=== PATIENT | female | born 1985 | race Caucasian/White ===

== ENCOUNTER 2017-02-10 05:45 | Emergency (ER) | payer BC, OTHER ==
--- NOTE | 2017-02-10 08:47 | DIAGNOSTIC IMAGING REPORT ---
PROCEDURE: CT ABD/PELVIS WITH CONTRAST INDICATION: Generalized abdominal pain. Prior hysterectomy. TECHNIQUE: 125 ml of Isovue 300 were injected intravenously and axial images were obtained of the entire abdomen and pelvis with sagittal and coronal reformations. COMPARISON: None. FINDINGS: ABDOMEN: Mild increased fluid in the mid and distal small bowel. Bowel pattern is otherwise normal, including appendix. Gallbladder, liver, spleen, pancreas, kidneys, and aorta are normal. PELVIS: Status post hysterectomy. There is mild to moderate enlargement right adnexal region (5.6 cm) with 2-3 cysts ( largest 18 mm). Small amount of free fluid in the pelvis. Left ovary is normal (2.2 cm). IMPRESSION: 1. Mild increased fluid in the mid and distal small bowel. While this may be normal, consider ileus. 2. Normal appendix. 3. Status post hysterectomy. 4. Moderate enlargement right adnexal region and right ovary (5.6 cm) with multiple cysts. In addition, there is a small amount of free fluid the pelvis. Overall appearance suggests an occult ruptured ovarian cyst, although endometriosis might also be considered. Underlying ovarian mass is less likely, although still a consideration. Follow-up pelvic ultrasound (3-4 weeks) is recommended to confirm resolution. 5. Findings discussed with Dr. Luis A Anthony. All CT scans at this facility use dose modulation, iterative reconstruction, and/or weight-based dosing when appropriate to reduce radiation dose to as low as reasonably achievable.
--- NOTE | 2017-02-10 09:19 | ED ORDER SUMMARY ---
..... Patient: IMANI JACKSON OrderSheet [facility] VisitID: [id number] [place] [address] 31y, F Registration Date/Time: 02/10/2017 ORDER SHEET Weight: 84.8 kg (stated) Allergies: NIFEdipine GENERAL ORDERS: CBC w Diff Urgent (06:11 02/10/2017 Alan Davies) (Ack 6:28 Bryan) (6:48 Juliet R.N.) CMP Urgent (06:11 02/10/2017 Alan Davies) (Ack 6:28 Bryan) (6:48 Juliet R.N.) UA-Culture if indicated Urgent (06:11 02/10/2017 Alan Davies) (6:13 Jackson R.Tono.) Amylase Urgent (07:12 02/10/2017 Alan Davies) (Ack 7:14 Javier) (7:22 ALawrence ER Tech1) Lipase Urgent (07:12 02/10/2017 Alan Davies) (Ack 7:14 Javier) (7:22 ALawrence ER Tech1) CT Abd/Pel w Cont (No) (8/0.7) Urgent (07:52 02/10/2017 Alan Davies) (Ack 8:08 ALawrence ER Tech1) (8:26 ALawrence ER Tech1) MEDICATION ORDERS: IV FLUIDS: IV NS : initial bolus none -, then 1000 mL/hr for X1 (NOW) (06:10 02/10/2017 Alan Davies) (Ack 6:14 Jackson R.NEulalia) (6:48 Juliet R.N.) Zofran IV 4 mg (NOW) (06:11 02/10/2017 Alan Davies) (Ack 6:14 Jackson R.NEulalia) (6:46 Juliet R.N.) Toradol IV 30 mg (NOW) (07:44 02/10/2017 Alan Davies) (Ack 7:44 Daniel R.N.) (7:48 JBoardley R.N.) ORDER SHEET NOTES: [Electronically signed by Luis A Anthony Dr. (09:41 02/10/2017)] [Electronically signed by Ángel Davis R.N. (:50 02/10/2017)] [Electronically locked/signed by Ángel Davis R.N. (:50 02/10/2017)]
--- NOTE | 2017-02-10 09:19 | ED NURSING NOTES ---
Clinical Report - Nurses [facility] [address] [place] [address] 02/10/2017 5:48 [id number] Triage time 05:52. Acuity: LEVEL 3. Chief Complaint: ABDOMINAL PAIN and NAUSEA and FEVER, CHILLS, ACHES and PAINFUL URINATION. --06:01 Celeste Perdo R.N. 05:52 02/10/17. BP: 133/88 taken on the left arm, while lying. HR: 93 (regular and normal rate). RR: 16 (regular and unlabored). O2 saturation: 99% on room air. Temp: 97.9 F. Pain level now: 03/29. --06:01 Celeste Pedro R.N. Weight: 84.8 kg stated. Height/Length: 65 inches Per Patient. BMI: 31.1. --05:55 Celeste Pedro R.N. Medications Venlafaxine HCl ER Oral 2 tablets, daily. --05:58 Celeste Pedro R.N. Adderall Oral (Tablet 20 mg) 1 tablet, daily. --05:58 Celeste Pedro R.N. Allergies NIFEdipine. Definite Severe (hypotension) --05:59 Celeste Pedro R.N. History Historian: patient. This started yesterday. ( pt c/o lower abd pain states "feels like there is a blockage" last BM was yesterday.). PAST MEDICAL HX: Immunizations: up-to-date. SOCIAL HX: Never smoker. Occasional alcohol use. No drug use. No infectious disease exposure. No known contact with a sick individual. ABUSE ASSESSMENT: Abuse assessment: The patient was asked "Do you feel safe in your home?" Abuse denied by patient. No report of abuse. SELF HARM ASSESSMENT: A self harm assessment was performed. The patient answered "no" to the question "Have you recently felt down, depressed, or hopeless?", "Have you noticed less interest or pleasure in doing things?", "Do you have thoughts of harming or killing yourself?", "Are you here because you tried to hurt yourself?", "Have you ever tried to hurt yourself before today?", "Have you recently had thoughts about harming or killing others?" and "Do you have any dangerous items in your possession?". FALL RISK ASSESSMENT: Fall risk assessment completed. No fall risk identified. NUTRITIONAL RISK ASSESSMENT: The nutritional risk assessment revealed no deficiencies. FUNCTIONAL ASSESSMENT: Functional assessment: no impairments noted. LEARNING NEEDS ASSESSMENT: The learning needs assessment revealed no barriers. SKIN INTEGRITY ASSESSMENT: Skin integrity risk assessment completed. No skin integrity risk identified. --06:01 Celeste Pedro R.N. Arrived by private vehicle. Historian: patient. Unaccompanied. Primary physician (vickey). --06:01 Celeste Pedro R.N. PROBLEMS: PTSD. ADHD - Attention Deficit Hyperactivity Disorder. --06:00 Celeste Pedro R.N. ADDITIONAL SURGERIES: . Elbow repair. Hysterectomy. --06:00 Celeste Pedro R.N. Interventions ID band on patient. --06:01 Celeste Pedro R.N. PHYSICAL ASSESSMENT Ambulatory to room. GENERAL / NEURO / PSYCH: Alert. Oriented X 4. Appears in pain. HEENT: Mucous membranes are pink. RESPIRATORY: Respirations not labored. Breath sounds within normal limits. CVS: Normal sinus rhythm noted. Capillary refill less than 2 seconds. GI / : The patient has had constant nausea. Abdomen soft. Abdominal tenderness in the right lower quadrant and lower abdomen. Bowel sounds within normal limits. SKIN: Skin is warm and dry. --06:02 Celeste Pedro R.N. NURSING PROGRESS NOTES Pulse oximeter and NIBP monitor placed on patient; gambling monitor- Lead II. Patient gowned. Two patient identifiers checked. Call light placed in reach. Side rails up x 1. Bed placed in lowest position. Brakes of bed on. --06:02 Celeste Pedro R.N. Patient ready for evaluation- chart flagged. --06:02 Celeste Pedro R.N. 06:35 02/10/2017 Two (2) unsuccessful IV access attempts including the right antecubital space and left upper arm. Applied bandage and manual pressure. --06:50 Celeste Pedro R.N. 06:43 02/10/2017 Zofran (Ondansetron HCl) IVP 4 mg given over 30 second(s) via site #1. Allergies verified and confirmed 5 rights. IV patency established. IV site checked: no pain, redness, or swelling. IV flushed thoroughly pre- and post-medication administration. IVP given by RN. --06:46 Kathy Patrick R.N. 06:45 02/10/2017 Site #1 started via IV in the left hand with an 20g angiocath, with aseptic technique and good blood return; one attempt. Blood drawn. Labeled in the presence of the patient and sent to the lab. Saline lock flushed with 10 mL saline (red and green topped tubes drawn at time of IV start.). --06:46 Kathy Patrick R.N. 06:45 02/10/2017 Started bag #1 1000 mL IV Fluids IV NS (Saline); at 1000 mL/hr via site #1 via IV pump. Allergies verified and confirmed 5 rights. IV patency established. IV site checked: no pain, redness, or swelling. IV flushed thoroughly pre- and post-medication administration. --06:48 Kathy Patrick R.N. 06:45 02/10/17. BP: 125/81 taken on the left arm, while lying. HR: 75 (regular and normal rate). RR: 18 (regular and unlabored). O2 saturation: 100% on room air. Temp: deferred. Pain level now: 12/28. --07:00 Celeste Pedro R.N. Overall patient status is the same- she states feels the same. GI / : Bowel sounds within normal limits. --07:00 Celeste Pedro R.N. Care transferred and report given (Sondra CARTER). --07:06 Celeste Pedro R.N. 07:48 02/10/17. BP: 125/67. HR: 77. RR: 18. O2 saturation: 100% on room air. Pain level now: 03/29. --07:48 Ángel Davis R.N. 07:35 02/10/2017 IV Fluids IV NS Discontinued: bag #1 infused. Total amount infused: 1000 mL. IV patency established. IV site checked: no pain, redness, or swelling. IV flushed thoroughly. --07:50 Ángel Davis R.N. 07:48 02/10/2017 Toradol IVP 30 mg given over 2 minute(s) via site #1. Allergies verified and confirmed 5 rights. IV patency established. IV site checked: no pain, redness, or swelling. IV flushed thoroughly pre- and post-medication administration. IVP given by RN. --07:48 Ángel Davis R.N. 07:48 02/10/17. --07:48 Ángel Davis R.N. 07:49 02/10/17. Patient informed about reason for wait and about plan of care. --07:49 Ángel Davis R.N. 08:03 02/10/17. Patient informed about reason for wait and about plan of care. --08:04 Ángel Davsi R.N. 08:04 02/10/17. Patient waiting for CT to be done. --08:04 Ángel Davis R.N. 08:28 02/10/17. Reassessment after medication administered. She has had no adverse reaction. Overall patient status is improved- she states feels better. --08:28 Ángel Davis R.N. 08:28 02/10/17. Pain level now: 10. --08:28 Ángel Davis R.N. 08:02/10/17. Patient waiting for CT results. --08:28 Ángel Davis R.N. DISPOSITION / DISCHARGE 09:02/10/2017 Site #1 removed upon discharge. Catheter intact. --09:25 Ángel Davis R.N. 09:26 02/10/17. Condition at departure: improved. The goals identified in the patient's plan of care were met. No learning barriers present. Discharge instructions provided and reviewed with the patient. Reviewed warnings. Reviewed medication(s). Treatments reviewed. Patient verbalized understanding. Written instructions provided in Uzbek. The patient was discharged by the physician. She was discharged home and accompanied by family. She left the Emergency Department ambulatory and via private vehicle. Family member driving. FALL RISK ASSESSMENT: Fall risk assessment completed. No fall risk identified. --09:26 Ángel Davis R.N. 09:25 02/10/17. BP: 124/66. HR: 81. RR: 15. O2 saturation: 99% on room air. Temp: 97.9 F (oral). Pain level now: 10/30. --09:26 Ángel Davis R.N. 09:26 02/10/17. Departure time: 09:Feb 10 2017. --09:26 Ángel Davis R.N. Locked/Released at 02/10/2017 9:50 by Ángel Davis R.N.
--- NOTE | 2017-02-10 09:19 | ED CLINICAL REPORT ---
Clinical Report - Physicians/Mid Levels [facility] [address] [place] [address] 02/10/2017 5:48 Patient: IMANI JACKSON Time Seen: 05:53; initial patient contact. Arrived- By private vehicle. Historian- patient. HISTORY OF PRESENT ILLNESS Chief Complaint: ABDOMINAL PAIN. This started yesterday and is still present. It was gradual in onset and has been constant. At its maximum, severity described as moderate. When seen in the E.D., severity described as moderate. Modifying factors. Not worsened by anything. Not relieved by anything. No radiation. It is described as located in the lower abdomen. The patient has had nausea, loss of appetite and vomiting. No diarrhea. No recent travel. Similar symptoms previously: None. Recent medical care: Not recently seen/assessed. REVIEW OF SYSTEMS No constipation, difficulty with urination, pain with urination, urinary frequency or fever. No chills. Last bowel movement: yesterday. All systems otherwise negative, except as recorded above. PAST HISTORY PTSD. ADHD - Attention Deficit Hyperactivity Disorder. SURGERIES: . Elbow repair. Hysterectomy. SOCIAL HISTORY Never smoker. Occasional alcohol use. No drug use. ADDITIONAL NOTES The nursing notes have been reviewed. PHYSICAL EXAM Vital Signs: 02/10/2017 05:52 BP: 133/88. HR: 93. RR: 16. O2 saturation: 99%. Temp: 97.9 F. Pain level now: 7/10. Have been reviewed as normal. Appearance: Alert. Oriented X3. No acute distress. Eyes: Eyes normal inspection. ENT: Pharynx normal. CVS: Normal heart rate and rhythm. Heart sounds normal. Respiratory: No respiratory distress. Breath sounds normal. Abdomen: Soft. Moderate tenderness in the right lower quadrant and lower abdomen with guarding present. Positive psoas sign. No rebound tenderness or obturator sign present. Bowel sounds normal. No organomegaly. No mass. Back: Normal inspection. No CVA tenderness. Skin: Skin warm and dry. Normal skin color. No rash. Neuro: Oriented X 3. LABS, X-RAYS, AND EKG Abdominal CT: 1. Mild increased fluid in the mid and distal small bowel. While this may be normal, consider ileus. 2. Normal appendix. 3. Status post hysterectomy. 4. Moderate enlargement right adnexal region and right ovary (5.6 cm) with multiple cysts. In addition, there is a small amount of free fluid the pelvis. Overall appearance suggests an occult ruptured ovarian cyst, although endometriosis might also be considered. Underlying ovarian mass is less likely, although still a consideration. Follow-up pelvic ultrasound (3-4 weeks) is recommended to confirm resolution. Study type: abdomen and pelvis. Abdominal CT performed with IV contrast. The study was independently viewed by me, interpreted by the radiologist and discussed with the radiologist. Prior studies were not available for comparison. Interpretation time: 08:51. Laboratory Tests: UA-Culture if indicated: (MARKEL: 02/10/2017 05:57) ( MsgRcvd 02/10/2017 06:42) Final results Test Result Flag Units (Reference) URINE COLOR MINH URINE APPEARANCE CLEAR URINE GLUCOSE NEGATIVE (NEGATIVE) URINE BILIRUBIN ICTOTEST NEGATIVE (NEGATIVE) URINE KETONE TRACE (NEGATIVE) URINE SPECIFIC GRAVITY 1.025 (1.010-1.030) URINE PH 6.0 (5.0-8.0) URINE PROTEIN NEGATIVE (NEGATIVE) URINE UROBILINOGEN 4.0 EU/dL (0.2-1.0) The urobilinogen reagent area may react with interferingsubstances known to react with Sharon's reagent such asp-aminosalicylic acid and sulfonamides. Atypical colorreactions may be obtained in the presence of highconcentrations of p-aminobenzoic acid. The absence ofurobilinogen cannot be determined with this test. URINE NITRITE NEGATIVE (NEGATIVE) URINE BLOOD 2+ (NEGATIVE) URINE LEUK ESTERASE NEGATIVE (NEGATIVE) URINE RBC 5-10 rbc/hpf (0-1) URINE WBC 0-1 wbc/hpf (0-1) URINE EPITHELIAL CELLS 3-5 EPI/hpf (0-5) URINE BACTERIA MODERATE (2+ TO 3+) (NONE SEEN) URINE COMMENT CULTURE INDICATED RARE HYALINE CAST.URINE CULTURES ARE SET-UP BASED ON THE FOLLOWING CRITERIA:POSITIVE NITRITEPOSITIVE LEUKOCYTE ESTERASEGREATER THAN 10 WHITE BLOOD CELLSMODERATE (2+) OR GREATER BACTERIA CBC w Diff: (MARKEL: 02/10/2017 06:43) ( [facility] 02/10/2017 06:51) Final results Test Result Flag Units (Reference) WHITE BLOOD COUNT 13.4 H K/uL (4.5-11.5) RED BLOOD COUNT 4.14 M/uL (4.00-5.20) HEMOGLOBIN 14.3 gm/dL (12.0-16.0) HEMATOCRIT 41.1 % (36.0-46.0) MEAN CELL VOLUME 99 fL (80-100) MEAN CORPUSCULAR HGB 35 H pg (26-34) MEAN CORPUSCULAR HGB CONC 35 g/dL (31-37) RED CELL DISTRIBUTION WIDTH 12.9 % (11.6-14.8) PLATELET COUNT 259 K/uL (150-400) NEUTROPHIL % 82.1 H % (50-75) LYMPH % 9.8 L % (25-40) MONO % 5.9 % (3-14) EOSINOPHIL % 2.0 % (0-4) BASOPHIL % 0.2 % (0-2) Lipase: (MARKEL: 02/10/2017 06:43) ( [facility] 02/10/2017 07:44) Final results Test Result Flag Units (Reference) LIPASE 128 U/L (73-393) AMYLASE 42 U/L (25-115) CMP: (MARKEL: 02/10/2017 06:43) ( [facility] 02/10/2017 07:01) Final results Test Result Flag Units (Reference) GLUCOSE 105 mg/dL (70-110) BUN 8 mg/dL (7-18) CREATININE 0.7 mg/dL (0.6-1.3) Estimated GFR >60 mL/min Estimated GFR- >60 mL/min Note: Persistent reduction over 3 months in eGFR<60 mL/min/1.73 m2 defines CKD. Patients with eGFR values>=60 mL/min/1.73 m2 may also have CKD if evidence ofpersistent proteinuria. Additional information may be foundat www.kidney.org. SODIUM 139 mmol/L (136-145) POTASSIUM 3.9 mmol/L (3.5-5.1) CHLORIDE 104 mmol/L (98-107) CARBON DIOXIDE 27 mmol/L (21-32) CALCIUM 8.3 L mg/dL (8.5-10.1) TOTAL PROTEIN 7.0 g/dL (6.4-8.2) ALBUMIN 3.3 g/dL (3.3-5.0) BILIRUBIN, TOTAL 1.4 H mg/dL (0.0-1.0) ALKALINE PHOSPHATASE 147 H U/L (46-116) AST (SGOT) 38 H U/L (15-37) ALT (SGPT) 49 U/L (12-78) . PROGRESS AND PROCEDURES Disposition: Discharged home in good and improved condition. Condition: good. CLINICAL IMPRESSION Acute urinary tract infection with cystitis. Single simple right ovarian cyst. INSTRUCTIONS Your Current Medications: CONTINUE TAKING THE FOLLOWING MEDICATIONS: Adderall Oral : Tablet 20 mg, 1 tablet daily. Venlafaxine HCl ER Oral : 2 tablets daily. Prescription Medications: Zofran (orally disintegrating tablets) 4 mg: take 1 orally every 6 hours as needed for nausea and vomiting. Dispense ten (10). No refill. Substitution is permissible. Cipro 500 mg: take 1 tab orally every 12 hours for 3 days. No refills. Substitution is permissible. Follow-up: Follow up with your doctor in about two days. Call for an appointment. Screening today revealed the patient's blood pressure to be in the pre-hypertensive range. The patient should follow up with a primary care provider for blood pressure management. (Electronically signed by Luis A Anthony Dr. 02/10/2017 9:41)
--- NOTE | 2017-02-10 09:19 | ED ORDER SUMMARY ---
..... Patient: IMANI JACKSON OrderSheet [facility] VisitID: [id number] [place] [address] 31y, F Registration Date/Time: 02/10/2017 ORDER SHEET Weight: 84.8 kg (stated) Allergies: NIFEdipine GENERAL ORDERS: CBC w Diff Urgent (06:11 02/10/2017 Alan Davies) (Ack 6:28 Bryan) (6:48 Juliet R.N.) CMP Urgent (06:11 02/10/2017 Alan Davies) (Ack 6:28 Bryan) (6:48 Juliet R.N.) UA-Culture if indicated Urgent (06:11 02/10/2017 Alan Davies) (6:13 Jackson R.Tono.) Amylase Urgent (07:12 02/10/2017 Alan Davies) (Ack 7:14 Javier) (7:22 ALawrence ER Tech1) Lipase Urgent (07:12 02/10/2017 Alan Davies) (Ack 7:14 Javier) (7:22 ALawrence ER Tech1) CT Abd/Pel w Cont (No) (8/0.7) Urgent (07:52 02/10/2017 Alan Davies) (Ack 8:08 ALawrence ER Tech1) (8:26 ALawrence ER Tech1) MEDICATION ORDERS: IV FLUIDS: IV NS : initial bolus none -, then 1000 mL/hr for X1 (NOW) (06:10 02/10/2017 Alan Davies) (Ack 6:14 Jackson R.NEulalia) (6:48 Juliet R.N.) Zofran IV 4 mg (NOW) (06:11 02/10/2017 Alan Davies) (Ack 6:14 Jackson R.NEulalia) (6:46 Juliet R.N.) Toradol IV 30 mg (NOW) (07:44 02/10/2017 Alan Davies) (Ack 7:44 Daniel R.N.) (7:48 JBoardley R.N.) ORDER SHEET NOTES: [Electronically signed by Luis A Anthony Dr. (09:41 02/10/2017)] [Electronically signed by Ángel Davis R.N. (:50 02/10/2017)] [Electronically locked/signed by Ángel Davis R.N. (:50 02/10/2017)]
--- NOTE | 2017-02-10 09:51 | ED MED RECONCILIATION SUMMARY ---
Patient: IMANI JACKSON Medication Reconciliation Report [facility] VisitID: [id number] [address] [place] [address] 31y, F Registration Date/Time: 02/10/2017 Weight: 84.8 kg Height/Length: 65 in. BMI: 31.1 ALLERGIES: NIFEdipine The patient's Home Medications are listed below: CONTINUE TAKING THE FOLLOWING MEDICATIONS: Adderall Oral (20 mg) 1 tablet, daily Venlafaxine HCl ER Oral 2 tablets, daily The source(s) of the original Home Medication information: Not obtained. The following Medications were given to the patient in the Emergency Department: Zofran [IVP] IVP 4 mg, administered: 02/10/2017 6:43:00 AM IV NS IV Fluids bolus 0, then 1000 mL/hr, administered: 02/10/2017 6:45:00 AM Toradol [IVP] IVP 30 mg, administered: 02/10/2017 7:48:00 AM The following Medications were prescribed to the patient: Zofran (orally disintegrating tablets) 4 mg: take 1 orally every 6 hours as needed for nausea and vomiting. Dispense ten (10). No refill. Substitution is permissible. -- Luis A Anthony Dr. Cipro 500 mg: take 1 tab orally every 12 hours for 3 days. No refills. Substitution is permissible. -- Luis A Anthony Dr.
--- NOTE | 2017-02-10 09:51 | ED MAR SUMMARY ---
..... Medication Administration Record [facility] [address] [place] [address] Patient: IMANI JACKSON Visit ID: [id number] 31y, F Weight: 84.8 kg Height/Length: 65 in BMI: 31.1 ALLERGIES: NIFEdipine Given 06:43 02/10/2017 Kathy Patrick R.N. Medication Administered: ZOFRAN [IVP] (ONDANSETRON HCL), Dose: 4 mg IVP over 30 second(s), Site: #1. Medication Ordered: Zofran IV 4 mg (NOW). Start 06:45 02/10/2017 Kathy Patrick R.N., Stop 07:35 02/10/2017 Ángel Davis R.N. Medication Administered: IV NS (SALINE), Dose: IV Fluids, Rate: 1000 mL/hr, Dispensed: 1000 mL bag, Site: #1 left hand. Medication Ordered: IV NS : initial bolus none -, then 1000 mL/hr for X1 (NOW). Given 07:48 02/10/2017 Ángel Davis R.N. Medication Administered: TORADOL [IVP], Dose: 30 mg IVP over 2 minute(s), Site: #1 left hand. Medication Ordered: Toradol IV 30 mg (NOW).
--- NOTE | 2017-02-10 09:51 | ED MAR SUMMARY ---
..... Medication Administration Record [facility] [address] [place] [address] Patient: IMANI JACKSON Visit ID: [id number] 31y, F Weight: 84.8 kg Height/Length: 65 in BMI: 31.1 ALLERGIES: NIFEdipine Given 06:43 02/10/2017 Kathy Patrick R.N. Medication Administered: ZOFRAN [IVP] (ONDANSETRON HCL), Dose: 4 mg IVP over 30 second(s), Site: #1. Medication Ordered: Zofran IV 4 mg (NOW). Start 06:45 02/10/2017 Kathy Patrick R.N., Stop 07:35 02/10/2017 Ángel Davis R.N. Medication Administered: IV NS (SALINE), Dose: IV Fluids, Rate: 1000 mL/hr, Dispensed: 1000 mL bag, Site: #1 left hand. Medication Ordered: IV NS : initial bolus none -, then 1000 mL/hr for X1 (NOW). Given 07:48 02/10/2017 Ángel Davis R.N. Medication Administered: TORADOL [IVP], Dose: 30 mg IVP over 2 minute(s), Site: #1 left hand. Medication Ordered: Toradol IV 30 mg (NOW).
--- NOTE | 2017-02-10 09:51 | ED MED RECONCILIATION SUMMARY ---
Patient: IMANI JACKSON Medication Reconciliation Report [facility] VisitID: [id number] [address] [place] [address] 31y, F Registration Date/Time: 02/10/2017 Weight: 84.8 kg Height/Length: 65 in. BMI: 31.1 ALLERGIES: NIFEdipine The patient's Home Medications are listed below: CONTINUE TAKING THE FOLLOWING MEDICATIONS: Adderall Oral (20 mg) 1 tablet, daily Venlafaxine HCl ER Oral 2 tablets, daily The source(s) of the original Home Medication information: Not obtained. The following Medications were given to the patient in the Emergency Department: Zofran [IVP] IVP 4 mg, administered: 02/10/2017 6:43:00 AM IV NS IV Fluids bolus 0, then 1000 mL/hr, administered: 02/10/2017 6:45:00 AM Toradol [IVP] IVP 30 mg, administered: 02/10/2017 7:48:00 AM The following Medications were prescribed to the patient: Zofran (orally disintegrating tablets) 4 mg: take 1 orally every 6 hours as needed for nausea and vomiting. Dispense ten (10). No refill. Substitution is permissible. -- Luis A Anthony Dr. Cipro 500 mg: take 1 tab orally every 12 hours for 3 days. No refills. Substitution is permissible. -- Luis A Anthony Dr.
--- NOTE | 2017-02-10 09:51 | ED DISCHARGE INSTRUCTIONS ---
Patient: IMANI JACKSON General Instructions Formerly [facility] VisitID: [id number] [place] [address] 31y, F Registration Date/Time: 02/10/2017 Acute urinary tract infection with cystitis. Single simple right ovarian cyst. INSTRUCTIONS Your Current Medications: CONTINUE TAKING THE FOLLOWING MEDICATIONS: Adderall Oral : Tablet 20 mg, 1 tablet daily. Venlafaxine HCl ER Oral : 2 tablets daily. Prescription Medications: Zofran (orally disintegrating tablets) 4 mg: take 1 orally every 6 hours as needed for nausea and vomiting. Dispense ten (10). No refill. Substitution is permissible. Cipro 500 mg: take 1 tab orally every 12 hours for 3 days. No refills. Substitution is permissible. Follow-up: Follow up with your doctor in about two days. Call for an appointment. Screening today revealed the patient's blood pressure to be in the pre-hypertensive range. The patient should follow up with a primary care provider for blood pressure management. ADDITIONAL INFORMATION Bladder Infection,Female (Adult) A bladder infection ("cystitis" or "UTI") usually causes a constant urge to urinate and a burning when passing urine. Urine may be cloudy, smelly or dark. There may be pain in the lower abdomen. A bladder infection occurs when bacteria from the vaginal area enter the bladder opening (urethra). This can occur from sexual intercourse, wearing tight clothing, dehydration and other factors. Home Care: Drink lots of fluids (at least 6-8 glasses a day, unless you must restrict fluids for other medical reasons). This will force the medicine into your urinary system and flush the bacteria out of your body. Avoid sexual intercourse until your symptoms are gone. Avoid caffeine, alcohol and spicy foods. These can irritate the bladder. A bladder infection is treated with antibiotics. You may also be given Pyridium (generic = phenazopyridine) to reduce the burning sensation. This medicine will cause your urine to become a bright orange color. The orange urine may stain clothing. You may wear a pad or panty-liner to protect clothing. Preventing Future Infections: Always wipe from front to back after a bowel movement. Keep the genital area clean and dry. Drink plenty of fluids each day to avoid dehydration. Both sexual partners should wash before intercourse. Urinate right after intercourse to flush out the bladder. Wear cotton underwear and cotton-lined panty hose; avoid tight-fitting pants. If you are on control pills and are having frequent bladder infections, discuss with your doctor. Follow Up: Return to this facility or see your doctor if ALL symptoms are not gone after three days of treatment. Get Prompt Medical Attention if any of the following occur: Fever of 100.4F (38C) or higher, or as directed by your healthcare provider No improvement by the third day of treatment Increasing back or abdominal pain Repeated vomiting; unable to keep medicine down Weakness, dizziness or fainting Vaginal discharge Pain, redness or swelling in the labia (outer vaginal area) Ovarian Cyst The ovary is a small organ located on each side of the uterus. During each menstrual cycle a tiny egg sac forms in the ovary. If the egg is released but does not occur, this sac usually dissolves. Sometimes, the sac may fill with fluid. It then enlarges into a painful cyst. Usually the cyst will rupture or shrink on its own. In either case, the pain gradually goes away over the next 1-3 days. If the cyst does not shrink or rupture, it may cause continued pain. Home Care: Rest in bed and avoid heavy exertion until you are feeling better. Heat to the lower abdomen usually helps (heating pad or hot packs -- a small towel soaked in hot water). You may use acetaminophen (Tylenol) or ibuprofen (Motrin, Advil) to control pain, unless another pain medicine was prescribed. [NOTE: If you have chronic liver or kidney disease or ever had a stomach ulcer or GI bleeding, talk with your doctor before using these medicines.] Follow Up: See your doctor within the next 2-3 days if your pain doesnt improve. Otherwise, follow up with your doctor after your next period or as directed by our staff. Get Prompt Medical Attention if any of the following occur: Pain worsens or fails to respond to the above measures Fever of 100.4F (38C) or higher, or as directed by your healthcare provider Heavy vaginal bleeding (soaking one pad an hour for three hours) You feel weak or dizzy Fainting Passage of a pink or cortes tissue with menstrual bleeding Ondansetron Oral disintegrating tablet What is this medicine? ONDANSETRON (on SETH se lennox) is used to treat nausea and vomiting caused by chemotherapy. It is also used to prevent or treat nausea and vomiting after surgery. How should I use this medicine? These tablets are made to dissolve in the mouth. Do not try to push the tablet through the foil backing. With dry hands, peel away the foil backing and gently remove the tablet. Place the tablet in the mouth and allow it to dissolve, then swallow. While you may take these tablets with water, it is not necessary to do so. Talk to your credit or loans officer regarding the use of this medicine in children. Special care may be needed. What side effects may I notice from receiving this medicine? Side effects that you should report to your doctor or health nurse care manager as soon as possible: allergic reactions like skin rash, itching or hives, swelling of the face, lips, or tongue breathing problems dizziness fast or irregular heartbeat feeling faint or lightheaded, falls fever and chills swelling of the hands and feet tightness in the chest Side effects that usually do not require medical attention (report to your doctor or health nurse care manager if they continue or are bothersome): constipation or diarrhea headache What may interact with this medicine? Do not take this medicine with any of the following medications: -apomorphine -cisapride -dofetilide -dronedarone -pimozide -thioridazine -ziprasidone This medicine may also interact with the following medications: -carbamazepine -phenytoin -rifampicin -tramadol -other medicines that prolong the QT interval (cause an abnormal heart rhythm) What if I miss a dose? If you miss a dose, take it as soon as you can. If it is almost time for your next dose, take only that dose. Do not take double or extra doses. Where should I keep my medicine? Keep out of the reach of children. Store between 2 and 30 degrees C (36 and 86 degrees F). Throw away any unused medicine after the expiration date. What should I tell my health care provider before I take this medicine? They need to know if you have any of these conditions: heart disease history of irregular heartbeat liver disease low levels of magnesium or potassium in the blood an unusual or allergic reaction to ondansetron, granisetron, other medicines, foods, dyes, or preservatives or trying to get breast-feeding What should I watch for while using this medicine? Check with your doctor or health nurse care manager as soon as you can if you have any sign of an allergic reaction. Ciprofloxacin Hydrochloride Oral tablet What is this medicine? CIPROFLOXACIN (sip richelle FLOX a sin) is a quinolone antibiotic. It is used to treat certain kinds of bacterial infections. It will not work for colds, flu, or other viral infections. How should I use this medicine? Take this medicine by mouth with a glass of water. Follow the directions on the prescription label. Take your medicine at regular intervals. Do not take your medicine more often than directed. Take all of your medicine as directed even if you think your are better. Do not skip doses or stop your medicine early. You can take this medicine with food or on an empty stomach. It can be taken with a meal that contains dairy or calcium, but do not take it alone with a dairy product, like milk or yogurt or calcium-fortified juice. A special MedGuide will be given to you by the pharmacist with each prescription and refill. Be sure to read this information carefully each time. Talk to your credit or loans officer regarding the use of this medicine in children. Special care may be needed. What side effects may I notice from receiving this medicine? Side effects that you should report to your doctor or health nurse care manager as soon as possible: - allergic reactions like skin rash, itching or hives, swelling of the face, lips, or tongue - breathing problems - confusion, nightmares or hallucinations - feeling faint or lightheaded, falls - irregular heartbeat - joint, muscle or tendon pain or swelling - pain or trouble passing urine -persistent headache with or without blurred vision - redness, blistering, peeling or loosening of the skin, including inside the mouth - seizure - unusual pain, numbness, tingling, or weakness Side effects that usually do not require medical attention (report to your doctor or health nurse care manager if they continue or are bothersome): - diarrhea - nausea or stomach upset - white patches or sores in the mouth What may interact with this medicine? Do not take this medicine with any of the following medications: cisapride droperidol terfenadine tizanidine This medicine may also interact with the following medications: antacids caffeine cyclosporin didanosine (ddI) buffered tablets or powder medicines for diabetes medicines for inflammation like ibuprofen, naproxen methotrexate multivitamins omeprazole phenytoin probenecid sucralfate theophylline warfarin What if I miss a dose? If you miss a dose, take it as soon as you can. If it is almost time for your next dose, take only that dose. Do not take double or extra doses. Where should I keep my medicine? Keep out of the reach of children. Store at room temperature below 30 degrees C (86 degrees F). Keep container tightly closed. Throw away any unused medicine after the expiration date. What should I tell my health care provider before I take this medicine? They need to know if you have any of these conditions: -bone problems -cerebral disease -joint problems -irregular heartbeat -kidney disease -liver disease -myasthenia gravis -seizure disorder -tendon problems -an unusual or allergic reaction to ciprofloxacin, other antibiotics or medicines, foods, dyes, or preservatives - or trying to get -breast-feeding What should I watch for while using this medicine? Tell your doctor or health nurse care manager if your symptoms do not improve. Do not treat diarrhea with over the counter products. Contact your doctor if you have diarrhea that lasts more than 2 days or if it is severe and watery. You may get drowsy or dizzy. Do not drive, use machinery, or do anything that needs mental alertness until you know how this medicine affects you. Do not stand or sit up quickly, especially if you are an older patient. This reduces the risk of dizzy or fainting spells. This medicine can make you more sensitive to the sun. Keep out of the sun. If you cannot avoid being in the sun, wear protective clothing and use sunscreen. Do not use sun lamps or tanning beds/booths. Avoid antacids, aluminum, calcium, iron, magnesium, and zinc products for 6 hours before and 2 hours after taking a dose of this medicine. You have been given the following additional information: Bladder Infection, Female (Adult) Ovarian Cyst Ondansetron Oral disintegrating tablet Ciprofloxacin Hydrochloride Oral tablet (Electronically signed by Luis A Anthony Dr. 02/10/2017 9:41)
== END 2017-02-10 09:26 | disposition home or self-care (01) ==
LOC: ED SRH 05:45
DX: N30.00 Acute cystitis without hematuria (principal); N83.291 Other ovarian cyst, right side
CPT/HCPCS: 90004; 90100; 90469; 92235; 92530; 95059